=== PATIENT | male | born 1975 | race Caucasian/White ===

== ENCOUNTER 2019-11-30 07:54 | Emergency (ER) | payer OTHER ==
[2019-11-30] MEDS ORDERED: HYDROcodone/Acetaminophen 10/325 mg Tablet ONE (08:49)
[2019-11-30] MEDS ORDERED: Dexamethasone 4 MG TAB ONE (08:49)
== END 2019-11-30 10:10 | disposition short-term general hospital (02) ==
LOC: ERS 07:54
DX: M54.16 Radiculopathy, lumbar region (principal); F31.9 Bipolar disorder, unspecified; F17.200 Nicotine dependence, unspecified, uncomplicated; Z79.899 Other long term (current) drug therapy
CPT/HCPCS: 99283; J8540

== ENCOUNTER 2019-12-12 13:15 | Outpatient (CLI) | payer OTHER ==
--- NOTE | 2019-12-12 13:51 | RAD ---
LUMBAR SPINE 4 VIEWS INCLUDING FLEXION AND EXTENSION LATERAL VIEWS: HISTORY: Low back pain and left leg pain for approximately 4 years. FINDINGS: Mild generalized spondylosis. No fracture, dislocation, or malalignment. No abnormal translation be tween flexion and extension. IMPRESSION: Unremarkable lumbar spine. POS: RRE
--- NOTE | 2019-12-12 14:21 | MRI ---
MRI LUMBAR SPINE NONCONTRAST: HISTORY: Left leg and back pain x4 years. COMPARISON: None. FINDINGS: Appropriate T1 marrow signal intensity of the lumbar vertebra. Lumbar spine vertebral body heights ar e maintained. No fracture. Intrinsic hemangioma at T12. Type II Modic changes at L2-L3, L3-L4, L4-L5 and L5-S1. No significant STIR hyperintensity to suggest vertebral body edema or ligamentous injury. Conus medullaris terminates at the mid L1 level. Appropriate signal intensity of the visualized solid organs and paraspinal muscles. T12-L1:Adequate disc hydration. No significant central canal stenosis or significant neural foraminal narrowing. L1-L2:Adequate disc hydration. Broad-based disc bulge with a left subarticular disc herniation associ ated with inferior disc extrusion. The inferior disc extrusion measures approximately 2 cm. There is narrowing of the left subarticular zone with partial obscuration the traversing left L2 nerve root . There is an annular fissure associated with the disc herniation. Bilaterally, neural foramina are patent. L2-L3:Disc desiccation without significant loss of disc space height. Broad-based disc bulge with ass ociated annular fissure abuts the thecal sac. Mild central canal stenosis. Right neural foramen is patent. Moderate left neural foraminal narrowing due to disc material from aforementioned inferior di sc extrusion. L3-L4:Disc desiccation with mild loss of disc space height. Broad-based disc bulge abuts the thecal s ac. Mild central canal stenosis. Disc material abuts but does not obscure either traversing L3 nerve root. Moderate bilateral neural foraminal narrowing. L4-L5:Disc desiccation with mild loss of disc space height. Broad-based disc bulge abuts the sac. Mil d central canal stenosis. Encroachment upon bilateral subarticular zones. Disc material. There is contact upon both traversing L5 nerve roots without significant mass effect or obscuration. Moderate bilateral neural foraminal narrowing. L5-S1:Disc desiccation with mild loss of disc space height. Broad-based disc bulge with a left subart icular and left foraminal herniation. There is complete obscuration of the traversing left S1 nerve root. Mild stenosis of the thecal sac. Moderate to severe right and left neural foraminal narrowing. IMPRESSION: Degenerative changes of the lumbar spine as described above. Transcribed Date/Time: 12/12/2019 2:33 PM
== END 2019-12-12 13:16 | disposition home or self-care (01) ==
LOC: TBSIIMAG 13:15
PROVIDERS: ATTEND Surgery
DX: M54.5 Low back pain (principal); M79.605 Pain in left leg; M47.816 Spondylosis without myelopathy or radiculopathy, lumbar region
CPT/HCPCS: 72110; 72148